=== PATIENT | male | born 1970 | race Two or more races ===

== ENCOUNTER 2023-07-30 07:11 | Day surgery (SDC) | payer OTHER ==
[~2023-07-30 07:11] MED LIST: COZAAR50 MG PO; TOPROL XL25 M1 PO; ZOCOR20 MG PO
== END 2023-07-30 13:00 | disposition home or self-care (01) ==
LOC: CIR.AMB 07:11
PROVIDERS: ATTEND Orthopaedic Surgery Hand Surgery
DX: M65.332 Trigger finger, left middle finger (principal); I10 Essential (primary) hypertension; Z20.822 Contact with and (suspected) exposure to COVID-19

== ENCOUNTER 2025-07-27 07:00 | Day surgery (SDC) | payer OTHER ==
[2025-07-19 12:01] VITALS: BP 145/95
[~2025-07-27] VITALS: Ht 182.9 cm; Wt 99.8 kg
[2025-07-27] MEDS ORDERED: CEFAZOLIN SODIUM 1,000 MG VIAL ONE (07:50)
== END 2025-07-27 12:20 | disposition home or self-care (01) ==
LOC: CIR.AMB 07:00
PROVIDERS: ATTEND Orthopaedic Surgery Hand Surgery
DX: M65.331 Trigger finger, right middle finger (principal)